=== PATIENT | female | born 1990 | race Caucasian/White ===

== ENCOUNTER 2021-07-10 14:36 | Outpatient (REF) | payer MEDICAID, SELFPAY ==
[2021-07-10 17:22] LABS: TSH (W/Ref FT4) 0.63 uIU/mL (0.36-3.74)
== END 2021-07-10 14:37 | disposition home or self-care (01) ==
LOC: NCHCN 14:36
PROVIDERS: PCP Internal Medicine; Visit Provider Nurse Practitioner Family
DX: R53.83 Other fatigue (principal); F41.9 Anxiety disorder, unspecified; E66.8 Other obesity
CPT/HCPCS: 84443

== ENCOUNTER 2021-08-07 10:58 | Outpatient (REF) | payer MEDICAID, SELFPAY ==
--- NOTE | 2021-08-07 08:45 | PAPFT_PTH ---
PATIENT: Johanne Bryson LOC: [facility]#:[id number] AGE/SX: 31/F ROOM: RE08/07/[address]: Farhana Cutler : 1990 BED: DIS: 08/07/2021 SPEC #: [id number] RECD: 08/07/21 17:20 STATUS: KOFFI RELydia #: [id number] JIMI: 08/07/21 08:[address]: Farhana Cutler DEPT: [facility] Cytology RECD BY: Ashley Gonzales ENTERED: 08/07/21 17:20 SP TYPE: PAPFT OTHR DR: Jos Christensen Tissues: 1 - CX/ENDOCX FOR PAP SMEARS Procedures: PAP THIN PREP/[facility] Screening HPV DNA PROBE Comments: [id number] (CHLAMYDIA/GC)
[2021-08-08 14:43] LABS: Chlamydia Result Negative (Negative); GC Result Negative (Negative)
== END 2021-08-07 10:59 | disposition home or self-care (01) ==
LOC: NCHCN 10:58
PROVIDERS: PCP Internal Medicine; Visit Provider Nurse Practitioner Family
DX: N89.8 Other specified noninflammatory disorders of vagina (principal); Z11.3 Encounter for screening for infections with a predominantly sexual mode of transmission; Z12.4 Encounter for screening for malignant neoplasm of cervix; Z11.51 Encounter for screening for human papillomavirus (HPV); Z01.419 Encounter for gynecological examination (general) (routine) without abnormal findings
CPT/HCPCS: 87491; 87591; 88142; 87480; 87510; 87624; 87660

== ENCOUNTER → 2021-08-23 02:17 | Outpatient (CLI) | payer MEDICAID, SELFPAY ==
--- NOTE | 2021-08-23 | DI.US_ITS ---
Exam(s) US PELVIS EXAM: US PELVIS CLINICAL HISTORY: IUD SURVEILLANCE, Z30.431. TECHNIQUE: Transabdominal pelvic ultrasound was performed using standard protocol. Patient declined the transvaginal portion of the examination. COMPARISON: No exams were available for comparison FINDINGS: KIDNEYS: Kidneys are symmetric in size. No evidence of renal calculi. No evidence of hydronephrosis. No renal mass or cyst identified. UTERUS: Position: Anteverted. Size: 10.9 long by 3.3 AP by 5.0 transverse cm Endometrium: 0.4 cm. Normal for patient's menstrual status. There is an IUD seen in good position wit hin the endometrium. Myometrium: Unremarkable. Cervix: Unremarkable. OVARIES: Right: 3.3 x 2 x 2 cm Cyst or mass: No suspicious cystic or solid masses. Left: 2.8 x 1.8 x 2.6 cm Cyst or mass: No suspicious cystic or solid masses. DOPPLER: Color: Symmetric and uniform flow to both ovaries. No hyperemia. Duplex: Normal ovarian arterial waveforms visualized. CUL-DE-SAC: Free fluid: None. Other: None. IMPRESSION: The IUD is in good position within the endometrium. DATA REPOSITORY:
== END ==
PROVIDERS: PCP Nurse Practitioner Family; Visit Provider Nurse Practitioner Family
DX: Z30.431 Encounter for routine checking of intrauterine contraceptive device (principal)
CPT/HCPCS: 76856

== ENCOUNTER 2022-03-15 15:52 | Outpatient (REF) | payer MEDICAID, SELFPAY ==
[2022-03-15 21:08] LABS: Abs Immature Grans 0.01 10^3/uL (0.0-0.06); Absolute Basophil Count 0.02 10^3/uL (0.0-0.2); Absolute Eosinophil Count 0.14 10^3/uL (0.0-0.7); Absolute Lymphocyte Count 2.06 10^3/uL (1.2-3.4); Absolute Monocyte Count 0.44 10^3/uL (0.1-0.8); Absolute Neutrophil Count 3.94 10^3/uL (1.2-6.7); Basophils % 0.3; Eosinophils % 2.1; HCT 41.4 % (36.0-46.0); HGB 13.6 g/dL (11.2-15.7); Immature Grans % 0.2; Lymphocytes % 31.2; MCH 30.2 pg (27.0-33.0); MCHC 32.9 % (32.0-36.0); MCV 92 fL (80-95); MPV 11.2 fL (8.0-11.0); Monocytes % 6.7; Neutrophils % 59.5; Platelet Count 267 10^3/uL (130-400); RBC 4.51 10^6/uL (3.93-5.22); RDW 11.8 % (11.7-14.6); RDW-SD 39.8 fL; WBC 6.61 10^3/uL (4.4-10.8)
[2022-03-15 21:16] LABS: Iron 64 ug/dL (50-170); Total Iron Binding Capacity 292 ug/dL (250-450); Transferrin Sat 22 % (15-50)
[2022-03-15 21:44] LABS: Ferritin 79 ng/mL (8-252); TSH (W/Ref FT4) 0.82 uIU/mL (0.36-3.74); Vitamin B12 408 pg/mL (193-986)
== END 2022-03-15 15:53 | disposition home or self-care (01) ==
LOC: NCHCN 15:52
PROVIDERS: PCP Nurse Practitioner Family; Visit Provider Nurse Practitioner Family
DX: R51.9 Headache, unspecified (principal); F90.8 Attention-deficit hyperactivity disorder, other type; F41.8 Other specified anxiety disorders; G51.8 Other disorders of facial nerve; R53.83 Other fatigue; J45.909 Unspecified asthma, uncomplicated; E66.8 Other obesity
CPT/HCPCS: 82607; 82728; 83540; 83550; 84443; 85025

== ENCOUNTER 2022-05-23 00:53 | Outpatient (CLI) | payer MEDICAID, SELFPAY ==
--- NOTE | 2022-05-23 13:45 | DI.US_ITS ---
Exam(s) US PELVIS TRANSVAGINAL EXAM: US PELVIS TRANSVAGINAL CLINICAL HISTORY: IUD SURVEILLANCE, Z30.431. TECHNIQUE: Transabdominal and transvaginal pelvic ultrasound was performed using standard protocol. COMPARISON: US US PELVIS from 08/23/2021 FINDINGS: Due to patient body habitus, uterine evaluation is suboptimal. UTERUS: Position: Anteverted. Size: 8.8 long by 4.0 AP by 4.5 transverse cm Endometrium: 0.9 cm. Normal for patient's menstrual status. There is an IUD present. The arms of the IUD are not well seen. Myometrium: Unremarkable. Cervix: Unremarkable. OVARIES: The right ovary could only be visualized transabdominally. Right: 2.5 x 1.5 x 1.9 cm Cyst or mass: No suspicious cystic or solid masses. Left: 2.8 x 2.2 x 3.2 cm Cyst or mass: No suspicious cystic or solid masses. DOPPLER: Color: Arterial and venous flow is demonstrated in the left ovary. Color/Doppler could not be obtain ed in the right ovary on the transabdominal examination. CUL-DE-SAC: Free fluid: None. Other: None. IMPRESSION: 1. Examination limited by patient body habitus. 2. Suboptimal imaging of the uterus. IUD evaluation was limited. Accurate position of the entire IU D could not be obtained. 3. Unremarkable bilateral ovaries. DATA REPOSITORY:
== END 2022-05-23 01:13 ==
LOC: DI 00:54
PROVIDERS: PCP Nurse Practitioner Family; Visit Provider Family Medicine
DX: Z30.431 Encounter for routine checking of intrauterine contraceptive device (principal); R93.9 Diagnostic imaging inconclusive due to excess body fat of patient
CPT/HCPCS: 76830; 76856

== ENCOUNTER 2023-03-13 01:52 | Outpatient (CLI) | payer OTHER, SELFPAY ==
[2023-03-13 12:24] LABS: HCT 39.8 % (36.0-46.0); HGB 13.1 g/dL (11.2-15.7); MCHC 32.9 % (32.0-36.0); MCV 88 fL (80-95); MPV 10.5 fL (8.0-11.0); Platelet Count 235 10^3/uL (130-400); RBC 4.51 10^6/uL (3.93-5.22); RDW 12.1 % (11.7-14.6); RDW-SD 38.7 fL; WBC 6.93 10^3/uL (4.4-10.8)
[2023-03-13 12:37] LABS: Hemoglobin A1C 5.2 % (<5.7)
[2023-03-13 13:18] LABS: ALT 22 U/L (14-59); AST 19 U/L (15-37); Albumin 3.4 g/dL (3.4-5.0); Alkaline Phosphatase 73 U/L (46-116); Bilirubin, Direct 0.1 mg/dL (0.0-0.2); Bilirubin, Total 0.5 mg/dL (0.2-1.0); CREATININE 0.9 mg/dL (0.55-1.02); Estimated GFR 86.57 (mL/min/1.73m2); TSH 0.93 uIU/mL (0.36-3.74); Total Protein 7.5 g/dL (6.4-8.2)
== END 2023-03-13 01:53 | disposition home or self-care (01) ==
LOC: LBO 01:52
PROVIDERS: PCP Nurse Practitioner Family; Visit Provider Physician Assistant
DX: E66.01 Morbid (severe) obesity due to excess calories (principal); Z68.41 Body mass index [BMI] 40.0-44.9, adult
CPT/HCPCS: 36415; 80076; 85027; 82565; 83036; 84443